=== PATIENT | male | born 1950 | race Caucasian/White ===

== ENCOUNTER 2021-08-01 17:49 | Inpatient (IN) ==
[2021-08-02] MEDS ORDERED: Dextrose Gel 15 GM/37.5 ML TUBE PO PRN ×2 (03:07)
[2021-08-02] MEDS ORDERED: D5% in Water 1,000 ML IVC PRN (03:07)
[2021-08-02] MEDS ORDERED: *HR* Dextrose 50 % in Water (Syg) 50 ML SYRINGE IVP PRN (03:07)
[2021-08-02] MEDS ORDERED: Naloxone 0.4 MG/ML INJ IVP PRN (03:13)
[2021-08-02] MEDS ORDERED: Ondansetron 4 MG/2 ML VIAL IVP PRN (03:13)
[2021-08-02] MEDS ORDERED: Acetaminophen 325 MG TABLET PO PRN (03:13)
[2021-08-02] MEDS ORDERED: Perflutren Lipid Microsphere 1.3 ML in 0.9 % Sodium Chloride 8.7 ML IVP PRN (03:16)
[2021-08-02] MEDS: Insulin LISPRO 300 UNITS/3 ML VIAL SUBQ SCH ×5 (03:28→20:09)
[2021-08-02 04:19] LABS: Estimated Average Glucose 226 mg/dl; Hemoglobin A1C 9.5 %
[2021-08-02 04:22] LABS: Activated Partial Thrombo Time 34.1 Seconds (26.0-36.0); INR 1.4; Prothrombin Time 15.9 Seconds (9.4-12.1)
[2021-08-02 04:24] LABS: Blood Urea Nitrogen 15 mg/dL (8-23); Calcium 9.3 mg/dL (8.6-10.3); Carbon Dioxide 27 mEq/L (23-29); Chloride 101 mEq/L (98-107); Chol/HDL Ratio 2.6 (0-4.9); Cholesterol 121 mg/dL (< 200); Glucose 274 mg/dL (70-105); HDL Cholesterol 47 mg/dL (40-59); LDL Cholesterol,Calculated 55 mg/dL (< 100); Magnesium 1.3 mg/dL (1.6-2.6); Osmolality,Calculated 293 (280-300); Potassium 3.6 mEq/L (3.5-5.1); Sodium 136 mEq/L (136-145); Triglycerides 95 mg/dL (< 150)
[2021-08-02 04:40] LABS: Thyroid Stimulating Hormone 1.158 mcIU/mL (0.340-5.600)
[2021-08-02 04:50] LABS: Folate 15.4 ng/mL (3.0-16.0)
[2021-08-02 05:21] LABS: BUN/Creatinine Ratio 15 (6-26); eGFR For African Americans > 60 (> 60); eGFR For Non-African Americans > 60 (> 60)
[2021-08-02] MEDS ORDERED: *HR* LORazepam 2 MG/ML VIAL IVP ONE ×2 (05:38→18:56)
[2021-08-02 05:43] LABS: Hemoglobin 12.2 g/dL (12.9-16.9); Red Blood Count 4.43 M/mcL (4.19-5.50); White Blood Count 14.3 K/mcL (4.3-11.1)
[2021-08-02 05:44] LABS: Hematocrit 38.5 % (37.5-50.1); Mean Corpuscular HGB Conc 31.7 g/dL (31.6-35.5); Mean Corpuscular Hemoglobin 27.5 pg (28.0-33.3); Mean Corpuscular Volume 86.9 fL (83.0-100.0); Mean Platelet Volume 10.7 fL (9.4-12.4); Platelet Count 164 K/mcL (140-400); Red Cell Distribution Width 14.2 % (11.5-14.5)
[2021-08-02] MEDS ORDERED: Acetaminophen IV 1,000 MG/100 ML BAG IVPB ONE (07:21)
[2021-08-02] MEDS: Magnesium Oxide 400 MG TABLET PO SCH ×2 (08:28→20:19)
[2021-08-02] MEDS: Ampicillin/Sulbactam 1,500 MG in 0.9 % Sodium Chloride Mini Bag 100 ML IVPB SCH ×3 (08:41→20:19)
[2021-08-02 10:26] LABS: Adenovirus Not Detected (Not Detect); Bordetella Pertussis Not Detected (Not Detect); Chlamydophila pneumoniae Not Detected (Not Detect); Coronavirus 229E Not Detected (Not Detect); Coronavirus HKU1 Not Detected (Not Detect); Coronavirus NL63 Not Detected (Not Detect); Coronavirus OC43 Not Detected (Not Detect); Human Metapneumovirus Not Detected (Not Detect); Human Rhinovirus/Enterovirus Not Detected (Not Detect); Influenza A Subtype 2009 H1 Not Detected (Not Detect); Influenza B Not Detected (Not Detect); Mycoplasma pneumoniae Not Detected (Not Detect); Parainfluenza Virus 1 Not Detected (Not Detect); Parainfluenza Virus 2 Not Detected (Not Detect); Parainfluenza Virus 3 Not Detected (Not Detect); Parainfluenza Virus 4 Not Detected (Not Detect); Respiratory Syncytial Virus Not Detected (Not Detect); SARS-CoV-2 Not Detected (Not Detect)
[2021-08-02] MEDS: 0.9 % Sodium Chloride 1,000 ML IVC SCH ×2 (12:26→23:34)
[2021-08-02] MEDS: Azithromycin 500 MG in 0.9 % Sodium Chloride 250 ML IVPB SCH (12:27)
[2021-08-02] MEDS: Insulin DETEMIR 100 UNIT/ML X5UNITS SUBQ SCH (20:19)
[2021-08-03] MEDS: Ampicillin/Sulbactam 1,500 MG in 0.9 % Sodium Chloride Mini Bag 100 ML IVPB SCH ×4 (01:38→20:14)
[2021-08-03] MEDS ORDERED: *HR* LORazepam 2 MG/ML VIAL IVP STA (04:10)
[2021-08-03 05:56] LABS: Hemoglobin 12.3 g/dL (12.9-16.9)
[2021-08-03 05:58] LABS: Basophils % 0.5 %; Eosinophils % 0.2 %; Hematocrit 37.5 % (37.5-50.1); Immature Granulocytes % 0.7 % (0-4); Lymphocytes % 11.9 %; Mean Corpuscular HGB Conc 32.8 g/dL (31.6-35.5); Mean Corpuscular Hemoglobin 28.1 pg (28.0-33.3); Mean Corpuscular Volume 85.6 fL (83.0-100.0); Monocytes # 0.7 K/mcL (0.0-1.3); Monocytes % 7.5 %; Neutrophils # 6.9 K/mcL (1.6-8.9); Platelet Count 140 K/mcL (140-400); Red Blood Count 4.38 M/mcL (4.19-5.50); Segmented Neutrophils % 79.2 %; White Blood Count 8.7 K/mcL (4.3-11.1)
[2021-08-03 06:00] LABS: BUN/Creatinine Ratio 14 (6-26); Blood Urea Nitrogen 11 mg/dL (8-23); Carbon Dioxide 24 mEq/L (23-29); Chloride 103 mEq/L (98-107); Glucose 181 mg/dL (70-105); Osmolality,Calculated 286 (280-300); Potassium 4.1 mEq/L (3.5-5.1); Sodium 136 mEq/L (136-145); eGFR For African Americans > 60 (> 60); eGFR For Non-African Americans > 60 (> 60)
[2021-08-03 06:01] LABS: Alanine Aminotransferase 11 Units/L (7-52); Albumin 3.8 g/dL (3.5-5.7); Albumin/Globulin Ratio 1.3 (1.1-2.2); Alkaline Phosphatase 101 Units/L (34-104); Aspartate Amino Transferase 16 Units/L (13-39); BUN/Creatinine Ratio 14 (6-26); Bilirubin,Total 0.9 mg/dL (0.3-1.0); Blood Urea Nitrogen 11 mg/dL (8-23); Carbon Dioxide 25 mEq/L (23-29); Chloride 104 mEq/L (98-107); Globulin 2.9 g/dL (2.4-3.5); Glucose 178 mg/dL (70-105); Osmolality,Calculated 288 (280-300); Potassium 4.2 mEq/L (3.5-5.1); Sodium 137 mEq/L (136-145); Total Protein 6.7 g/dL (6.4-8.9); eGFR For African Americans > 60 (> 60); eGFR For Non-African Americans > 60 (> 60)
[2021-08-03] MEDS ORDERED: Haloperidol Lactate 5 MG/ML VIAL IVP PRN (09:57)
[2021-08-03] MEDS: Insulin LISPRO 300 UNITS/3 ML VIAL SUBQ SCH ×4 (11:08→20:14)
[2021-08-03] MEDS: lisinopriL 20 MG TABLET PO SCH (11:19)
[2021-08-03] MEDS: BuPROPion SR (12 HR) 150 MG TABLET PO SCH ×2 (11:19→20:16)
[2021-08-03] MEDS: Bicalutamide 50 MG TABLET PO SCH (11:19)
[2021-08-03] MEDS: amLODIPine 5 MG TABLET PO SCH (11:19)
[2021-08-03] MEDS: Pilocarpine 2% OPTH 15 ML BOTTLE LEFT EYE SCH ×4 (11:19→20:13)
[2021-08-03] MEDS: OLANZapine 5 MG TAB.RAPDIS PO SCH (11:20)
[2021-08-03] MEDS ORDERED: Acetaminophen IV 1,000 MG/100 ML BAG IVPB ONE (11:33)
[2021-08-03] MEDS: Azithromycin 500 MG in 0.9 % Sodium Chloride 250 ML IVPB SCH (12:15)
[2021-08-03] MEDS: Insulin DETEMIR 100 UNIT/ML X5UNITS SUBQ SCH (20:14)
[2021-08-03] MEDS: NETARSUDIL MESYLATE 0.02% OP SCH (20:15)
[2021-08-03] MEDS ORDERED: *HR* Metoprolol 5 MG/5 ML VIAL IVP ONE (21:14)
[2021-08-04] MEDS: Ampicillin/Sulbactam 1,500 MG in 0.9 % Sodium Chloride Mini Bag 100 ML IVPB SCH ×4 (02:04→21:07)
[2021-08-04] MEDS: amLODIPine 5 MG TABLET PO SCH (08:02)
[2021-08-04] MEDS: lisinopriL 20 MG TABLET PO SCH (08:02)
[2021-08-04] MEDS: OLANZapine 5 MG TAB.RAPDIS PO SCH (08:03)
[2021-08-04] MEDS: Bicalutamide 50 MG TABLET PO SCH (08:03)
[2021-08-04] MEDS: BuPROPion SR (12 HR) 150 MG TABLET PO SCH ×2 (08:03→21:08)
[2021-08-04 10:36] LABS: Red Cell Distribution Width 13.7 % (11.5-14.5)
[2021-08-04 10:38] LABS: Hematocrit 37.3 % (37.5-50.1); Hemoglobin 12.1 g/dL (12.9-16.9); Immature Platelets 2.7 % (1.1-6.1); Mean Corpuscular HGB Conc 32.4 g/dL (31.6-35.5); Mean Corpuscular Hemoglobin 27.1 pg (28.0-33.3); Mean Corpuscular Volume 83.4 fL (83.0-100.0); Mean Platelet Volume 9.8 fL (9.4-12.4); Red Blood Count 4.47 M/mcL (4.19-5.50); White Blood Count 8.6 K/mcL (4.3-11.1)
[2021-08-04] MEDS: Insulin LISPRO 300 UNITS/3 ML VIAL SUBQ SCH ×4 (10:48→21:13)
[2021-08-04] MEDS: Pilocarpine 2% OPTH 15 ML BOTTLE LEFT EYE SCH ×4 (10:48→21:10)
[2021-08-04 10:58] LABS: BUN/Creatinine Ratio 18 (6-26); Blood Urea Nitrogen 12 mg/dL (8-23); Calcium 9.1 mg/dL (8.6-10.3); Carbon Dioxide 25 mEq/L (23-29); Chloride 103 mEq/L (98-107); Glucose 152 mg/dL (70-105); Osmolality,Calculated 287 (280-300); Potassium 3.5 mEq/L (3.5-5.1); Sodium 137 mEq/L (136-145); eGFR For African Americans > 60 (> 60); eGFR For Non-African Americans > 60 (> 60)
[2021-08-04] MEDS: Azithromycin 500 MG in 0.9 % Sodium Chloride 250 ML IVPB SCH (11:32)
[2021-08-04] MEDS: NETARSUDIL MESYLATE 0.02% OP SCH (21:12)
[2021-08-04] MEDS: Insulin DETEMIR 100 UNIT/ML X5UNITS SUBQ SCH (22:19)
[2021-08-05] MEDS: Ampicillin/Sulbactam 1,500 MG in 0.9 % Sodium Chloride Mini Bag 100 ML IVPB SCH ×2 (01:15→08:35)
[2021-08-05 02:03] LABS: Hematocrit 33.5 % (37.5-50.1); Hemoglobin 10.9 g/dL (12.9-16.9); Mean Corpuscular HGB Conc 32.5 g/dL (31.6-35.5); Mean Corpuscular Hemoglobin 26.9 pg (28.0-33.3); Mean Corpuscular Volume 82.7 fL (83.0-100.0); Mean Platelet Volume 10.4 fL (9.4-12.4); Platelet Count 127 K/mcL (140-400); Red Blood Count 4.05 M/mcL (4.19-5.50); Red Cell Distribution Width 13.7 % (11.5-14.5); White Blood Count 9.1 K/mcL (4.3-11.1)
[2021-08-05 02:21] LABS: BUN/Creatinine Ratio 18 (6-26); Blood Urea Nitrogen 12 mg/dL (8-23); Calcium 8.6 mg/dL (8.6-10.3); Carbon Dioxide 26 mEq/L (23-29); Chloride 101 mEq/L (98-107); Glucose 204 mg/dL (70-105); Osmolality,Calculated 284 (280-300); Potassium 3.3 mEq/L (3.5-5.1); Sodium 134 mEq/L (136-145); eGFR For African Americans > 60 (> 60); eGFR For Non-African Americans > 60 (> 60)
[2021-08-05] MEDS ORDERED: Acetaminophen IV 1,000 MG/100 ML BAG IVPB ONE (04:01)
[2021-08-05] MEDS: OLANZapine 5 MG TAB.RAPDIS PO SCH (08:33)
[2021-08-05] MEDS: Bicalutamide 50 MG TABLET PO SCH (08:33)
[2021-08-05] MEDS: amLODIPine 5 MG TABLET PO SCH (08:34)
[2021-08-05] MEDS: BuPROPion SR (12 HR) 150 MG TABLET PO SCH (08:34)
[2021-08-05] MEDS: lisinopriL 20 MG TABLET PO SCH (08:34)
[2021-08-05] MEDS: Azithromycin 500 MG in 0.9 % Sodium Chloride 250 ML IVPB SCH (08:35)
[2021-08-05] MEDS: Insulin LISPRO 300 UNITS/3 ML VIAL SUBQ SCH ×2 (08:43→12:32)
[2021-08-05] MEDS: Pilocarpine 2% OPTH 15 ML BOTTLE LEFT EYE SCH ×2 (08:44→12:33)
[2021-08-05 15:06] LABS: Adenovirus Not Detected (Not Detect); Bordetella Pertussis Not Detected (Not Detect); Chlamydophila pneumoniae Not Detected (Not Detect); Coronavirus 229E Not Detected (Not Detect); Coronavirus HKU1 Not Detected (Not Detect); Coronavirus NL63 Not Detected (Not Detect); Coronavirus OC43 Not Detected (Not Detect); Human Metapneumovirus Not Detected (Not Detect); Human Rhinovirus/Enterovirus Not Detected (Not Detect); Influenza A Subtype 2009 H1 Not Detected (Not Detect); Influenza B Not Detected (Not Detect); Mycoplasma pneumoniae Not Detected (Not Detect); Parainfluenza Virus 1 Not Detected (Not Detect); Parainfluenza Virus 2 Not Detected (Not Detect); Parainfluenza Virus 3 Not Detected (Not Detect); Parainfluenza Virus 4 Not Detected (Not Detect); Respiratory Syncytial Virus Not Detected (Not Detect); SARS-CoV-2 Not Detected (Not Detect)
[2021-08-05 15:12] VITALS: BP 159/89; PULSE 95; TEMP 97.5; O2SAT 92
== END 2021-08-05 20:40 | disposition other institution (70) | DRG 871 ==
LOC: 3BNU → SUATTDRO 08-03 15:40
PROVIDERS: ADMIT Family Medicine; ATTEND Internal Medicine